=== PATIENT | female | born 1985 | race Caucasian/White ===

== ENCOUNTER 2024-02-03 10:49 | Emergency (ER) | payer BC, MEDICAID ==
[~2024-02-03] VITALS: Ht 172.7 cm; Wt 67.1 kg
[2024-02-03 11:53] VITALS: BP 105/53; PULSE 71; RESP 16; TEMP 98.1; O2SAT 100
[2024-02-03] MEDS: PENICILLIN G BENZ 1,200,000 UNITS/2 ML SYRG IM ONE (12:29)
[2024-02-03 12:52] LABS: Urine Bacteria FEW /hpf (None Seen); Urine Blood Negative /uL (Negative); Urine Clarity Turbid (Clear); Urine Color Light-Yellow (Yellow); Urine Protein, UAD Negative (Negative); Urine Specific Gravity 1.023 (1.001-1.035); Urine Urobilinogen Normal (Negative); Urine WBC 1 /hpf (0 - 5)
[2024-02-04 08:06] LABS: RPR Non Reactive (Non Reactive)
[2024-02-04 22:06] LABS: Chlamydia Trachomatis, NAA Negative (Negative); Neisseria gonorrhoeae, NAA Negative (Negative)
== END 2024-02-03 12:45 | disposition home or self-care (01) ==
LOC: ER 10:49
DX: A64 Unspecified sexually transmitted disease (principal); Z20.2 Contact with and (suspected) exposure to infections with a predominantly sexual mode of transmission
CPT/HCPCS: 81001; 81025; 86592; 87491; 87591; 96372; 99283; J0561